=== PATIENT | male | born 1990 | race Caucasian/White ===

== ENCOUNTER 2020-03-12 19:22 | Emergency (ER) | payer OTHER, SELFPAY ==
--- NOTE | ~2020-03-12 | XR_ITS ---
XR chest 2V DATE: 03/12/2020 20:57 INDICATION: Stabbing chest pain for 2 weeks. TECHNIQUE: PA and lateral views COMPARISON: None FINDINGS: Normal heart size. No hilar or mediastinal enlargement. No pulmonary infiltrate or consolid ation, pleural effusion or pulmonary vascular congestion or pneumothorax. IMPRESSION: No active cardiopulmonary disease Reviewed, dictated and finalized at location A. [employer]
--- NOTE | 2020-03-12 19:27 | ECG_ITS ---
Measurements Intervals [place] Rate: 124 P: 65 CO: 151 QRS: 72 QRSD: 101 T: 29 QT: 321 QTc: 461 Interpretive Statements SINUS TACHYCARDIA ABNORMAL ECG Electronically Signed On 03-13-2020 7:59:19 [employer] by Bao Ornelas D.O.
[2020-03-12 19:50] VITALS: BP 167/76; PULSE 117; RESP 18; TEMP 37.4; O2SAT 100
[2020-03-12 19:57] LABS: Basophils Absolute Auto 0.1 K/mm3 (0.0-0.1); Basophils Percent Auto 0.6 % (0.2-1.2); Eosinophils Absolute Auto 0.6 K/mm3 (0-0.3); Eosinophils Percent Auto 6.5 % (0-4.4); Hematocrit 41.7 % (42.0-52.0); Hemoglobin 13.9 g/dL (14.0-18.0); Immature Granulocyte Absolute 0.03 K/mm3 (0.00-0.031); Immature Granulocyte Percent A 0.3 % (0-0.5); Lymphocytes Absolute Auto 3.51 K/mm3 (0.9-3.2); Lymphocytes Percent Auto 39.8 % (18.3-44.2); Mean Corpuscular HGB Conc 33.3 g/dl (32-36); Mean Corpuscular Hemoglobin 29.3 pg (26-34); Mean Corpuscular Volume 87.8 fl (80-100); Mean Platelet Volume 8.6 fl (7.4-10.4); Monocytes Absolute Auto 0.6 K/mm3 (0.1-0.6); Monocytes Percent Auto 7.1 % (2.6-8.5); Neutrophils Percent Auto 45.7 % (45.5-73.1); Platelet Count Result 376 k/mm3 (150-375); Red Blood Count 4.75 M/mm3 (4.6-6.20); Red Cell Distribution Width 11.9 % (11.5-14.5); White Blood Count 8.8 K/mm3 (4.5-10.0)
[2020-03-12 20:05] LABS: Prothrombin Time 13.4 Seconds (11.1-14.7)
[2020-03-12 20:06] LABS: Partial Thromboplastin Time 28.1 SECONDS (22.3-36.8)
[2020-03-12 20:08] LABS: Anion Gap 7 mmol/L (8-16); Blood Urea Nitrogen 20 mg/dL (9-20); Calcium 9.3 mg/dL (8.4-10.2); Carbon Dioxide 32 mmol/L (22-30); Chloride 102 mmol/L (98-107); Estimated CRCL calculation 65 ml/min; Estimated Glomerular Filt Rate 60; Glucose 107 mg/dL (75-110); Potassium 3.8 mmol/L (3.4-5.0); Sodium 141 mmol/L (137-145)
[2020-03-12 20:19] LABS: Troponin I < 0.012 ng/mL (0.000-0.034)
[2020-03-12 22:30] VITALS: PULSE 69
[2020-03-12] MEDS: Please add drug allergy info to patient profile. 1 EACH XX (22:51)
[2020-03-12] MEDS: ASPIRIN 81 MG CHEWABLE TABLET 324 MG PO (22:51)
[2020-03-12 22:53] VITALS: BP 147/67; PULSE 81; RESP 21; O2SAT 98
[2020-03-12 23:08] LABS: Troponin I < 0.012 ng/mL (0.000-0.034)
--- NOTE | 2020-03-13 00:11 | ED.CHESTPAIN ---
HPI - Chest Pain General Chief Complaint: Chest Pain Stated Complaint: chest pain Time Seen by Provider: 03/12/20 22:07 History of Present Illness HPI narrative: Patient is a 29-year-old male who presents ER with multiple complaints. First complaint is bilateral wrist pain and hand numbness has been ongoing for couple weeks. Worse in the evening. Occasionally has same discomfort if he leans his back against a wall. No pain in his neck. No trauma. Patient also reports some mild central chest pressure ongoing for the last 2 weeks. Reports family history of heart disease in a brother and a father. No heart disease himself. He also took his EKG through his phone and it reported that he had atrial fib 1/3 evaluations. Patient denies any infectious symptoms including fever/chills/runny nose/sore throat/productive cough. Related Data Home Medications Medication Instructions Recorded Confirmed aspirin 650 mg PO DAILY 03/12/20 Allergies Allergy/AdvReac Type Severity Reaction Status Date / Time No Known Allergies Allergy Verified 03/12/20 22:50 Review of Systems Review of Systems: All systems reviewed & are unremarkable except as noted in HPI and below Constitutional: Constitutional: Denies chills, Denies fever(s) and Denies weakness ENT: Denies nasal congestion and Denies sore throat Cardiovascular: Cardiovascular: Reports chest pain, Denies rapid heart rate and Denies radiating jaw, neck or arm pain Respiratory: Respiratory: Denies cough, Denies dyspnea and Denies wheezing Gastrointestinal: Gastrointestinal: Denies abdominal pain, Denies nausea and Denies vomiting Musculoskeletal: Musculoskeletal: Denies back pain and Denies muscle cramps Neurologic: Denies focal weakness and Reports numbness PMFSH Past Medical History Medical History (Updated 03/13/20 @ 00:19 by Zachary Fu MD) Healthy adult male Surgical History Surgical History (Updated 03/13/20 @ 00:14 by Zachary Fu MD) No history of previous surgery Exam Narrative: Exam Narrative: GENERAL: Well-appearing, well-nourished, and in no acute distress. HEAD: Normocephalic, atraumatic. CHEST: Clear to auscultation. No respiratory distress. HEART: Regular rate and rhythm. No murmur heard. Normal peripheral pulses. ABDOMEN: Soft, nontender, nondistended,. EXTREMITIES: Normal range of motion. No edema. Positive bilateral carpal tunnel compression test. SKIN: Warm, dry, no rash. NEURO: Alert and oriented x3. PSYCH: Normal mood and affect. Course Course Emergency Course: I reviewed the patient's EKGs on his cell phone that he had taken with his smart watch. There is no evidence of atrial fibrillation in fact the ECG was detecting a lot of artifact. Educated patient on this. Tachycardia resolved prior to my evaluation patient. Troponins negative x2. Unremarkable chest x-ray. Discharge home with supportive therapy. Discussed he should also buy cock-up wrist splints for his wrist. Vital Signs Vital signs: Vital Signs Temperature 99.3 F 03/12/20 19:50 Pulse Rate 117 H 03/12/20 19:50 Respiratory Rate 18 03/12/20 19:50 Blood Pressure 167/76 H 03/12/20 19:50 Pulse Oximetry 100 03/12/20 19:50 Temperature 99.3 F 03/12/20 19:50 Pulse Rate 81 03/12/20 22:53 Respiratory Rate 21 H 03/12/20 22:53 Blood Pressure 147/67 H 03/12/20 22:53 Pulse Oximetry 98 03/12/20 22:53 MDM - Chest Pain Lab Data Result diagrams: 03/12/20 19:46 03/12/20 19:46 Labs: Lab Results 03/12/20 03/12/20 03/12/20 Range/Units 19:46 19:46 19:46 WBC 8.8 (4.5-10.0) K/mm3 RBC 4.75 (4.6-6.20) M/mm3 Hgb 13.9 L (14.0-18.0) g/dL Hct 41.7 L (42.0-52.0) % MCV 87.8 (80-100) fl MCH 29.3 (26-34) pg MCHC 33.3 (32-36) g/dl RDW 11.9 (11.5-14.5) % Plt Count 376 H (150-375) k/mm3 MPV 8.6 (7.4-10.4) fl Immature Gran % (Auto) 0.3 (0-0.5) % Neut % (Auto)
[2020-03-13 00:33] VITALS: BP 106/55; PULSE 61; RESP 15; TEMP 37.2; O2SAT 100
== END 2020-03-13 00:35 | disposition home or self-care (01) ==
PROVIDERS: Emergency Medicine; Emergency Provider Emergency Medicine
DX: R07.9 Chest pain, unspecified (principal); G56.03 Carpal tunnel syndrome, bilateral upper limbs; R00.0 Tachycardia, unspecified
CPT/HCPCS: 36415; 71046; 80048; 84484; 85025; 85610; 85730; 93005; 99284; A9270

== ENCOUNTER 2020-08-09 14:44 | Emergency (ER) | payer OTHER, SELFPAY ==
--- NOTE | ~2020-08-09 | XR_ITS ---
EXAMINATION: XR forearm LT 2V INDICATION: Left forearm pain TECHNIQUE: Two views of the left forearm are obtained. COMPARISON: None available FINDINGS: There is no fracture, dislocation, or subluxation. The bones, soft tissues, and joint space s are normal. IMPRESSION: 1. No acute osseous abnormality. Reviewed, dictated and finalized at location A.
[2020-08-09 15:39] VITALS: BP 150/91; PULSE 108; RESP 18; TEMP 36.9; O2SAT 98
--- NOTE | 2020-08-09 18:59 | ED.UPPEXIN ---
HPI - Extremity Injury (Upper) General Chief Complaint: Extremity Injury, Upper Stated Complaint: upper extremity swelling Time Seen by Provider: 08/09/20 17:55 Source: patient Mode of arrival: ambulatory Limitations: no limitations History of Present Illness HPI narrative: Patient is a 29-year-old male complaining of left forearm swelling and pain after putting up boxes yesterday. Patient now states that the swelling and pain has almost resolved, he does not have any pain at this time but he still notices some mild swelling. Denies any redness, numbness, weakness or cold extremity. Denies any fever or chills. Related Data Home Medications Medication Instructions Recorded Confirmed clonidine HCl 08/09/20 trazodone 08/09/20 Allergies Allergy/AdvReac Type Severity Reaction Status Date / Time No Known Allergies Allergy Verified 08/09/20 15:42 Review of Systems Review of Systems: All systems reviewed & are unremarkable except as noted in HPI and below PMFSH Past Medical History Medical History (Updated 08/09/20 @ 19:06 by Rocky Pierre MD) Healthy adult male Surgical History Surgical History (Updated 03/13/20 @ 00:14 by Zachary Fu MD) No history of previous surgery Social History Social History Gender identity (if verbalized by the patient): Male Comments Past medical history: None Family history: Negative for any blood clots Social history: Non-smoker, occasional EtOH use, steroid use Exam Const: General: no acute distress and alert Orientation/consciousness: patient oriented x3 HENMT: Head: normal to inspection Eyes: Conjunctivae: conjunctivae normal Neck: Neck: normal visual inspection Resp: Effort & Inspection: normal respiratory effort Skin: General skin exam: normal color Rashes: no rashes Neuro: General: patient oriented x3 and moves all extremities Speech: normal speech Extrem: General: normal to inspection, full ROM and capillary refill normal Left upper extremity: normal to inspection, full ROM, normal capillary refill and elbow/forearm (No significant swelling seen on the left forearm. No pain on palpation. ); no cyanosis, no edema and joint enlargement noted Other: No deformity of the left upper extremity. No swelling of his left forearm noted. No pain on palpation of left forearm. Full range of motion of the left upper extremity. Neurovascular is intact. Course Vital Signs Vital signs: Vital Signs Temperature 36.9 C 08/09/20 15:39 Pulse Rate 108 H 08/09/20 15:39 Respiratory Rate 18 08/09/20 15:39 Blood Pressure 150/91 H 08/09/20 15:39 Pulse Oximetry 98 08/09/20 15:39 Temperature 36.9 C 08/09/20 15:39 Pulse Rate 108 H 08/09/20 15:39 Respiratory Rate 18 08/09/20 15:39 Blood Pressure 150/91 H 08/09/20 15:39 Pulse Oximetry 98 08/09/20 15:39 Discharge Plan Discharge Clinical Impression: Muscle strain of left forearm Qualifiers: Encounter type: initial encounter Qualified Code(s): S56.912A - Strain of unspecified muscles, fascia and tendons at forearm level, left arm, initial encounter Patient Disposition: Home, Self-Care Condition: Improved Instructions: Muscle Strain (ED) Prescriptions: No Action clonidine HCl 0.1 mg tablet RF: 0 trazodone 100 mg tablet RF: 0 Follow-up/Referrals: PHYSICIAN,SENIOR MECHANICAL PROJECT MANAGER [Primary Care Provider] - Time of Disposition: 19:05
[2020-08-09 20:09] VITALS: BP 142/89; PULSE 99; RESP 20; TEMP 36.2; O2SAT 99
== END 2020-08-09 20:09 | disposition home or self-care (01) ==
PROVIDERS: Emergency Provider Emergency Medicine
DX: S56.912A Strain of unspecified muscles, fascia and tendons at forearm level, left arm, initial encounter (principal); X50.9XXA Other and unspecified overexertion or strenuous movements or postures, initial encounter
CPT/HCPCS: 73090; 99283